=== PATIENT | female | born 1965 | race Caucasian/White ===

== ENCOUNTER 2019-10-28 18:17 | Observation (INO) | payer OTHER ==
[~2019-10-28] VITALS: Ht 162.6 cm; Wt 91.6 kg
[~2019-10-28 18:17] MED LIST: HYDROCODON-ACE1 EA11 PO; IBUPROFEN600 MG PO; INDOMETHACIN50 MG PO; INDOMETHACIN75 MG PO; IRON325 M1 PO; LISINOPRIL5 MG PO; METOPROLOL SUCC25 MG PO; MIRALAX17 GM PO; OMEPRAZOLE20 MG PO; OXYCODONE HCL5 MG PO; POTASSIUM GLUC500 MG PO; VIBERZI75 MG PO; VITAMIN D5000 UNIT PO; VIVLODEX10 MG PO; XARELTO10 MG PO
--- OUTSIDE RECORDS SUMMARY | 2019-10-28 18:20 | XMS ---
PreManage Notification: JACKY MAURICE Security [place] [employer] Events No recent Security Events currently on file CRITERIA MET - [facility] CARE PROVIDERS [facility] Current PHONE: Unknown trae Case or [employer] Current PHONE: Unknown [place] Noah Current Orthopedic Surgery \T\ [facility] PHONE: Unknown Darin has no Care Guidelines for this patient. E.D. VISIT COUNT (12 MO.) 1 [facility] TOTAL 1 NOTE: Visits indicate total known visits. ED/UCC VISIT TRACKING (12 MO.) 10/28/2019 18:18 [facility] OR TYPE: Emergency COMPLAINT: - SOB/DIZZINESS INPATIENT VISIT TRACKING (12 MO.) No inpatient visits to display in this time frame [email or web address]
[2019-10-28] MEDS ORDERED: LISINOPRIL10 MG PO (19:18)
[2019-10-28] MEDS ORDERED: NITROFURANTOIN100 MG PO (19:19)
[2019-10-28] MEDS ORDERED: FOLIC ACID1 MG PO (19:19)
[2019-10-28] MEDS ORDERED: DICYCLOMINE HCL20 MG PO (19:20)
[2019-10-28] MEDS ORDERED: MAGNESIUM250 M1 PO (19:21)
[2019-10-28] MEDS ORDERED: NORCO 5-325 TA1 EACH PO (19:21)
[2019-10-28] MEDS ORDERED: FISH OIL 1,2001 EAC7 PO (19:22)
[2019-10-28] MEDS ORDERED: CALCIUM600 MG PO (19:22)
[2019-10-28] MEDS ORDERED: MEGA BIOTIN10000 MCG PO (19:22)
[2019-10-28] MEDS ORDERED: VITAMIN D310000 UNI1 PO (19:23)
[2019-10-29] MEDS ORDERED: FOLIC ACID1 MG PO (03:13)
[2019-10-29] MEDS ORDERED: LISINOPRIL10 MG PO (03:14)
[2019-10-29] MEDS ORDERED: NITROFURANTOIN100 MG PO (03:15)
[2019-10-29] MEDS ORDERED: DICYCLOMINE HCL20 MG PO (03:16)
[2019-10-29] MEDS ORDERED: NORCO 5-325 TA1 EACH PO (03:18)
[2019-10-29] MEDS ORDERED: VALACYCLOVIR500 MG PO ×2 (03:25→11:52)
[2019-10-29] MEDS ORDERED: HYDROCODON-ACE1 EAC8 PO (09:10)
--- NOTE | 2019-10-29 12:44 | EKG ---
[facility] [address] [place], [place] [address] Signed Normal sinus rhythm Left bundle branch block Abnormal ECG No previous ECGs available Confirmed by ELDA WALLACE MD ([id number]) on 10/29/2019 12:44:07 PM Electronically Signed By: ELDA WALLACE MD 10/29/19 1244 PATIENT NAME: JACKY MAURICE Electrocardiogram DATE OF : 63 PHYSICIAN: ELDA WALLACE MD REPORT #: [id number] REPORT IS CONFIDENTIAL AND NOT TO BE RELEASED WITHOUT AUTHORIZATION
[2019-10-29] MEDS ORDERED: ADVIL200 M1 PO (15:27)
== END 2019-10-30 13:45 | disposition home or self-care (01) ==
LOC: ED 18:17 → MS 18:19 → ED 18:19 → MS 10-30 13:45
PROVIDERS: ADMIT Internal Medicine
DX: R55 Syncope and collapse (principal); R06.00 Dyspnea, unspecified; E87.2 Acidosis; I10 Essential (primary) hypertension; M13.0 Polyarthritis, unspecified; R10.9 Unspecified abdominal pain; G89.29 Other chronic pain; Z79.899 Other long term (current) drug therapy; Z79.2 Long term (current) use of antibiotics; Z79.891 Long term (current) use of opiate analgesic; Z87.440 Personal history of urinary (tract) infections
CPT/HCPCS: 36415; 71046; 71260; 80053; 81001; 82010; 82533; 83605; 83735; 83880; 84443; 84484; 85025; 85379; 86140; 87502; 93005; 93010; 93306; 94060; 96360; 96361; 96372; 99285-25; G0378; J1650; J7030; J7121; Q9967